=== PATIENT | female | born 1985 | race Caucasian/White ===

== ENCOUNTER 2017-09-07 17:57 | Outpatient (CLI) | payer MEDICAID | END 2017-09-07 20:50 | disposition home or self-care (01) | LOC: OBT 17:57 → L-D 17:58 → OBT 20:50 | DX: O36.8130 Decreased fetal movements, third trimester, not applicable or unspecified (principal); Z3A.36 36 weeks gestation of pregnancy | CPT/HCPCS: 76818 ==

== ENCOUNTER 2017-09-10 11:25 | Outpatient (CLI) | payer MEDICAID | END 2017-09-10 13:33 | disposition home or self-care (01) | LOC: OBT 11:25 → L-D 11:26 → OBT 13:33 | DX: O36.8130 Decreased fetal movements, third trimester, not applicable or unspecified (principal); Z3A.37 37 weeks gestation of pregnancy | CPT/HCPCS: 76818 ==

== ENCOUNTER 2017-09-24 12:28 | Inpatient (IN) | payer MEDICAID ==
[~2017-09-24 12:28] MED LIST: OXYTOCIN 30 UNITS/LR 500 ML BAG IV
[2017-09-24] MEDS ORDERED: METHYLERGONOVINE 0.2 MG INJ IM (13:00)
[2017-09-24] MEDS ORDERED: MISOPROSTOL 200 MCG TAB PR ×2 (13:00→14:30)
[2017-09-24] MEDS ORDERED: CARBOPROST 250 MCG INJ IM (13:00)
[2017-09-24] MEDS ORDERED: OXYTOCIN 30 UNITS/LR 500 ML IV (13:00)
[2017-09-24 13:32] LABS: ADD MAN DIFF? NO; BASOPHILS % 0.3 % (0.0-2.0); EOSINOPHILS # 0.1 10^3/ul (0.0-0.5); EOSINOPHILS % 1.4 % (0.0-7.0); HEMATOCRIT 39.1 % (37.0-47.0); HEMOGLOBIN 13.6 g/dl (12.0-16.0); LYMPHOCYTES # 1.3 10^3/ul (0.8-2.9); LYMPHOCYTES % 19.1 % (15.0-51.0); MEAN CORPUSCULAR HEMOGLOBIN 30.7 pg (29.0-33.0); MEAN CORPUSCULAR HGB CONC 34.8 g/dl (32.0-37.0); MEAN CORPUSCULAR VOLUME 88.3 fl (82.0-101.0); MEAN PLATELET VOLUME 11.1 fl (7.4-10.4); MONOCYTE # 0.3 10^3/ul (0.3-0.9); MONOCYTES % 3.7 % (0.0-11.0); NEUTROPHIL # 5.3 10^3/ul (1.6-7.5); NEUTROPHILS % 75.1 % (39.0-77.0); PLATELET COUNT 163 10^3/UL (140-415); RED BLOOD COUNT 4.43 10^6/ul (4.20-5.40); RED CELL DISTRIBUTION WIDTH 13.5 % (11.5-14.5)
[2017-09-24] MEDS: LACTATED RINGER'S 1,000 ML IV (13:53)
[2017-09-24 13:54] LABS: INR 0.87; PROTIME 11.9 Sec (11.9-14.9); PT RATIO 0.9
[2017-09-24 13:55] LABS: PARTIAL THROMBOPLASTIN TIME 24.7 Sec (25.0-35.0)
[2017-09-24] MEDS ORDERED: LACTATED RINGER'S 1,000 ML IV (14:07)
[2017-09-24] MEDS ORDERED: BUPIVACAINE 0.75%/DEXT (SPINAL) 2 ML INJ (14:09)
[2017-09-24] MEDS ORDERED: OXYTOCIN 10 UNIT INJ (14:09)
[2017-09-24] MEDS ORDERED: ONDANSETRON 4 MG INJ (14:09)
[2017-09-24] MEDS ORDERED: PHENYLephrine (100 MCG/ML) 5ML SYG (14:09)
[2017-09-24] MEDS ORDERED: morphine SULFATE/PF (10 MG/10 ML) INJ (14:09)
[2017-09-24] MEDS ORDERED: NA PHOSPHATE/BIPHOS 133 ML ENEMA PR (14:30)
[2017-09-24] MEDS ORDERED: OXYCODONE/ACETAMINOPHEN (5/325) TAB PO (14:30)
[2017-09-24] MEDS ORDERED: morphine 2 MG INJ IV (15:30)
[2017-09-24] MEDS ORDERED: NALOXONE (0.4 MG/ML) INJ IV (15:30)
[2017-09-24 15:37] LABS: RAPID PLASMA REAGIN NONREACTIVE (NR)
[2017-09-24] MEDS: OXYTOCIN 30 UNITS/LR 500 ML IV ×3 (15:39→23:45)
[2017-09-24] MEDS: ONDANSETRON 4 MG INJ IV (16:31)
[2017-09-24] MEDS: CEFAZOLIN 2 GM/50 ML (PMX) 50 ML IV ×2 (16:39→18:56)
[2017-09-24] MEDS: KETOROLAC 30 MG INJ IV (16:47)
[2017-09-24] MEDS: DIPHENHYDRAMINE 50 MG INJ IV (17:19)
[2017-09-24] MEDS: IBUPROFEN 600 MG TAB PO ×2 (18:00→23:37)
[2017-09-24] MEDS: SENNA/DOCUSATE NA (8.6MG/50MG) TAB PO (21:16)
[2017-09-25] MEDS: LACTATED RINGER'S 1,000 ML IV ×3 (04:46→12:46)
[2017-09-25] MEDS: IBUPROFEN 600 MG TAB PO ×4 (06:00→23:53)
[2017-09-25 08:08] LABS: ADD MAN DIFF? NO
[2017-09-25] MEDS: SENNA/DOCUSATE NA (8.6MG/50MG) TAB PO ×2 (08:08→20:53)
[2017-09-25] MEDS: LANOLIN 7 GM TUBE TOP (08:08)
[2017-09-25 08:22] LABS: WHITE BLOOD COUNT 11.5 10^3/ul (4.8-10.8)
[2017-09-25 08:22] LABS: BASOPHILS % 0.2 % (0.0-2.0); EOSINOPHILS % 0.2 % (0.0-7.0); HEMATOCRIT 30.7 % (37.0-47.0); HEMOGLOBIN 10.7 g/dl (12.0-16.0); LYMPHOCYTES # 1.1 10^3/ul (0.8-2.9); LYMPHOCYTES % 9.4 % (15.0-51.0); MEAN CORPUSCULAR HGB CONC 34.9 g/dl (32.0-37.0); MEAN PLATELET VOLUME 11.1 fl (7.4-10.4); MONOCYTE # 0.5 10^3/ul (0.3-0.9); MONOCYTES % 4.6 % (0.0-11.0); NEUTROPHIL # 9.8 10^3/ul (1.6-7.5); NEUTROPHILS % 85.2 % (39.0-77.0); PLATELET COUNT 152 10^3/UL (140-415); RED BLOOD COUNT 3.45 10^6/ul (4.20-5.40); RED CELL DISTRIBUTION WIDTH 13.2 % (11.5-14.5)
[2017-09-25] MEDS: OXYCODONE/ACETAMINOPHEN (5/325) TAB PO (20:53)
[2017-09-26] MEDS: IBUPROFEN 600 MG TAB PO ×3 (05:35→16:55)
[2017-09-26] MEDS: SENNA/DOCUSATE NA (8.6MG/50MG) TAB PO (09:56)
[2017-09-26] MEDS: DIPHTH/TET/ACEL PERTUSS (ADULT) 0.5 ML VIAL IM* (12:39)
[2017-09-27] MEDS ORDERED: DIPHTH/TET/ACEL PERTUSS (ADULT) 0.5 ML VIAL IM* (09:00)
[2017-09-27] MEDS ORDERED: MEASLES,MUMPS,RUBELLA VACCINE INJ SC* (09:00)
== END 2017-09-26 17:45 | disposition home or self-care (01) | DRG 766 ==
LOC: L-D 12:28 → PP1 18:16
PROVIDERS: Specialist
PROC: 10D00Z1 Extraction of Products of Conception, Low, Open Approach (ICD-10-PCS; principal; 2017-09-24 14:00)
DX: O34.219 Maternal care for unspecified type scar from previous cesarean delivery (principal); Z37.0 Single live birth; Z3A.39 39 weeks gestation of pregnancy
CPT/HCPCS: 85025; 85610; 85730; 86592; 86850; 86900; 86901; 90715